=== PATIENT | female | born 1995 | race Caucasian/White ===

== ENCOUNTER 2018-04-17 13:30 | Outpatient (REF) | payer BC, SELFPAY ==
[2018-04-17 19:32] LABS: HCT 43.3 % (36.0-46.0); HGB 14.9 g/dL (12.0-15.5); Mean Corp. HGB Concentration 34.4 g/dL (32.0-36.0); Mean Corpuscular Hemoglobin 31.3 pg (27.0-33.0); Mean Platelet Volume 11.5 fL (8.0-11.0); Platelet Count 205 x1000/uL (130-400); RBC 4.76 m/cumm (4.00-5.20); RBC Distribution Width 12.4 % (11.7-14.6); White Blood Cell Count 5.47 k/cumm (4.4-10.8)
[2018-04-17 19:45] LABS: Anion Gap 9.6 mmol/L (3-11); BUN 12 mg/dL (7-18); CO2 27.4 mmol/L (21.0-32.0); CREATININE 0.76 mg/dL (0.55-1.02); Chloride 105 mmol/L (98-107); Glucose 89 mg/dL (70-100); Potassium 4.2 mmol/L (3.5-5.1); Sodium 142 mmol/L (136-145)
== END 2018-04-17 13:50 ==
LOC: NCHCN 13:30
PROVIDERS: PCP Physician Assistant Medical; Visit Provider Nurse Practitioner Family
DX: R10.9 Unspecified abdominal pain (principal)
CPT/HCPCS: 80048; 85027

== ENCOUNTER 2018-04-18 15:12 | Outpatient (REF) | payer BC, SELFPAY ==
[2018-04-20 11:56] LABS: Helicobacter pylori Ag, Feces Negative (NEGAT)
== END 2018-04-18 15:32 ==
LOC: NCHCN 15:12
PROVIDERS: PCP Physician Assistant Medical; Visit Provider Nurse Practitioner Family
DX: R10.9 Unspecified abdominal pain (principal)
CPT/HCPCS: 87338

== ENCOUNTER 2024-02-22 15:15 | Outpatient (REF) | payer BC, SELFPAY ==
--- OUTSIDE RECORDS SUMMARY | 2024-02-22 15:19 | XMS_ITS | Referral Summary ---
Author Organization [facility] Address [address] [place] [address] Care Team Providers Care Sterile Tech Name Role Phone Unknown, Provider Primary Care Provider [phone] Social History Tobacco Use Types Packs/Day Years Used Date Smoking Tobacco: Never Assessed Sex and Gender Information Value Date Recorded Sex Assigned at Not on file Gender Identity Not on file Sexual Orientation Not on file Plan of Treatment Not on file Care Teams Sterile Tech Relationship Specialty Start Date End Date Unknown, Provider, PCP - General 12/03/16
--- OUTSIDE RECORDS SUMMARY | 2024-02-22 15:19 | XMS_ITS | Encounter Summary ---
Author Organization [facility] Address [address] [place] [address] Care Team Providers Care Integrated Circuit Fabricator Name Role Phone Unknown, Provider Primary Care Provider [phone] Encounter Details Date Type Department Care Team (Late st Contact Info) Description 12/03/2016 Results Only [facility] [phone] Sera Grigsby MD [address] [place] [address] [phone] Social History Tobacco Use Types Packs/Day Years Used Date Smoking Tobacco: Never Assessed Sex and Gender Information Value Date Recorded Sex Assigned at Not on file Gender Identity Not on file Sexual Orientation Not on file documented as of this encounter Plan of Treatment Not on file documented as of this encounter Procedures Procedure Name Priority Date/Time Associated Diagnosis Comments PAP TEST- RESULT ONLY Routine 12/03/2016 0:00 EDT documented in this encounter Results * PAP TEST- RESULT ONLY (12/03/2016 0:00 EDT) Pathology Report: CYTOPATHOLOGY REPORT Reports generated via electronic interface contain original data; however they are lacking the format of the original report. Caution should be taken when reading/interpreti ng unformatted reports. Name: ? ELSY BAIRD ? Accession #: ? [id number] : ? 1995 (Age: 20) ??F ?Collect Date: ? 12/03/2016 Location: ? [facility] ? Receive Date: ? 12/07/2016 Provider: ?SERA GRIGSBY MD Copy to: ? Specimen/Source: ?Pap Test, Cervix, ThinPrep Imaging System with manual evaluation Last Menstrual Period: ? Hormonal/Contracep tive Status: ? None ? SPECIMEN ADEQUACY ? Satisfactory for Evaluation - transformation zone component present GENERAL CATEGORIZATION ? Epithelial Cell Abnormality INTERPRETATION ? Squamous Cell Abnormality - Low grade squamous intraepithelial lesion (LSIL). Fungal organisms present morphologically consistent with Cindy species. EDUCATIONAL NOTES/RECOMMENDATI ONS ? [facility] recommends following ASCCP's 2012 Updated Consensus Guidelines for the Management of Abnormal Cervical Cancer Screening Tests and Cancer Precursors (JLGTD, 2013; 17(5):S1-S27). ??Consensus guidelines are available online at www.asccp.org. ? Document reviewed and electronically signed by: ? KARI HANKS MD ? Report Date: ??12/16/2016 15:58 End of Report [facility] 12/03/2016 12/07/2016 Sera Grigsby MD PATHOLOGY KRISTY DIAZ [facility] [address] [place] [address] documented in this encounter Visit Diagnoses Not on filedocumented in this encounter Care Teams Integrated Circuit Fabricator Relationship Specialty Start Date End Date Unknown, Provider, PCP - General 12/03/16 documented as of this encounter
--- OUTSIDE RECORDS SUMMARY | 2024-02-22 15:19 | XMS_ITS | Continuity of Care Document ---
Author Organization [facility] Address [address] [place] [address] Care Team Providers Care Backside Grinder Name Role Phone Outside, Provider Primary Care Physician [facility] [id number] Date(s): 02/15/24 - 02/15/24 [facility] [address] [place] [address] Encounter Diagnosis Gastroenteritis(Discharge Diagnosis) - 02/15/24 Discharge Disposition: Home or Self Care Attending Physician: Elmer Holley MD Admitting Physician: Elmer Holley MD Allergies, Adverse Reactions, Alerts Substance Criticality Severity Reaction Reaction Severity Status tetanus/diphth/pertuss (Tdap) adult/adol High criticality Moderate Active Assessment and Plan Extracted from: Title:ED Provider Note Author:Elmer Holley MD Date:02/15/24 Assessment/Plan 1.??Gastroenteritis??K52.9 Ordered: ondansetron 4 mg oral tablet, disintegrating, 4 mg = 1 tab, Oral, TID, # 10 tab, 0 Refill(s), 02/26/24 5:10:00 EDT, Pharmacy: [facility], 113.4, kg, 02/15/24 3:53:00 EDT, Weight Dosing Discharge Patient, 02/15/24 5:10:00 EDT, Home Independently, Constant Indicator ?? Orders: THP ondansetron 4 mg Dis Tab, 4 tab, Oral, Misc, Once, First Dose: 02/15/24 5:10:00 EDT, Stop Date: 02/15/24 5:10:00 EDT, Physician Stop, STAT .Manual Differential (NCTY), Blood, Stat, Collected, 02/15/24 4:03:00 EDT, Once, Nurse collect, [id number] Follow Up With When Contact Information Outside, Provider Within 1 to 2 weeks ?? Additional Instructions: Medications ondansetron 4 mg oral tablet, disintegrating 4 mg = 1 tab, Oral, TID, # 10 tab, 0 Refill(s), 02/26/24 4:10:00 AM CDT, Pharmacy: [facility], 113.4, kg, 02/15/24 3:53:00 EDT, Weight Dosing Start Date: 02/15/24 Stop Date: 02/26/24 Status: Ordered Results Laboratory List Name Date .Manual Differential (NCTY) 02/15/24 CBC w/ Diff 02/15/24 Comprehensive Metabolic Panel (CMP) 02/14 Lipase Level 02/15/24 Magnesium Level 02/15/24 Most recent to oldest [Reference Range]: 1 WBC [5.0-10.0 x10^3/mcL] 15.0 x10^3/mcL *HI* (02/15/24 4:03 AM) RBC [4.1-5.3 x10^6/mcL] 5.6 x10^6/mcL *HI* (02/15/24 4:03 AM) Segs Man [40-75 %] 84 % *HI* (02/15/24 4:03 AM) Lymph Man [20-50 %] 9 % *LOW* (02/15/24 4:03 AM) Barber Man [2-15 %] 6 % (02/15/24 4:03 AM) Eos Man [1-6 %] 1 % (02/15/24 4:03 AM) BUN [7-18 mg/dL] 16 mg/dL (02/15/24 4:03 AM) Glucose Level [74-106 mg/dL] 130 mg/dL *HI* (02/15/24 4:03 AM) Potassium Level [3.5-5.1 mmol/L] 4.2 mmo l/L (02/15/24 4:03 AM) MCV [80.0-96.0 fL] 87.7 fL (02/15/24 4:03 AM) RBC Morph Normal (02/15/24 4:03 AM) AST [15-37 unit/L] 17 unit/L (02/15/24 4:03 AM) ALT [14-59 unit/L] 28 unit/L (02/15/24 4:03 AM) MCHC [31.0-35.0 g/dL] 34.0 g/dL (02/15/24 4:03 AM) Sodium Level [136-145 mmol/L] 140 mmol/L (02/15/24 4:03 AM) Hct [37.0-47.0 %] 49.4 % *HI* (02/15/24:03 AM) Lipase Level [16-77 unit/L] 26 unit/L 1 (02/15/24: AM) Calcium Level [8.5-10.1 mg/dL] 10.0 mg/d L (02/15/24 4:03 AM) Albumin Level [3.4-5.0 g/dL] 4.2 g/dL (02/15/24:03 AM) Protein Total [6.4-8.2 g/dL] 8.6 g/dL *HI* (02/15/24 4:03 AM) MCH [26.0-32.0 pg] 29.8 pg (02/15/24:03 AM) Magnesium Level [1.8-2.4 mg/dL] 1.5 mg/d L *LOW* (02/15/24 4:03 AM) Bilirubin Total [0.2-1.0 mg/dL] 0.5 mg/d L (02/15/24 4:03 AM) Hgb [12.0-16.0 g/dL] 16.8 g/dL *HI* (02/15/24 4:03 AM) Alk Phos [46-146 unit/L] 96 unit/L (02/15/24 4:03 AM) Band Man [0-5 %] 0 % (02/15/24 4:03 AM) Platelets [130-450 x10^3/mcL] 343 x10^3/ mcL (02/15/24 4:03 AM) CO2 [21-32 mmol/L] 28 mmol/L (02/15/24 4:03 AM) eGFR Non-AA [>=60] 71 (02/15/24 4:03 AM) eGFR AA [>=60] 71 (02/15/24 4:03 AM) Chloride Level [98-107 mmol/L] 101 mmol/ L (02/15/24 4:03 AM) RDW-CV [11.5-14.5 %] 12.2 % (02/15/24 4:03 AM) Slide Review Man Diff (02/15/24 4:03 AM) Abs Neut Man 12.6 x10^3/mcL *NA* (02/15/24 4:03 AM) Creatinine Level [0.55-1.02 mg/dL] 1.08 mg/dL *HI* (02/15/24 4:03 AM) Plt Estimation [Adequate] Adequate (02/15/24 4:03 AM) Baso Man [0-1 %] 0 % (02/15/24 4:03 AM) 1Interpretive Data: Effective 03/04/22, [facility] has switched to a revised Lipase test.Note new ReferenceRange. Vital Signs Most recent to oldest [Reference Range]: 1 Temperature Temporal Artery [36-38 Deg C ] 36.5 Deg C (02/15/24 3:50 AM) Heart Rate Monitored [60-100 bpm] 129 bp m *HI* (02/15/24 3:50 AM) Respiratory Rate [12-24 br/min] 26 br/mi n *HI* (02/15/24 3:50 AM) Blood Pressure [90-120/60-80 mmHg] 119/7 9mmHg (02/15/24 3:50 AM) Mean Arterial Pressure, Cuff [65-140 mmH g] 92 mmHg (02/15/24 3:50 AM) Weight 113.40 kg (02/15/24 3:50 AM) Weight Dosing 113.400 kg (02/15/24 3:50 AM) Social History Social History Type Response Tobacco Never tobacco user T obacco Use:. Sex Female Sex Representation Female (finding) Hospital Discharge Instructions Follow Up Care 02/15/2024 03:47:25 With:Outside, Provider Address: When:1 to 2 weeks Physician Emergency department Note * Elmer Holley MD: PERFORM Event Display: ED Note Physician Authored Date: [id number] ELSY BAIRD :1995 Age:28 years Sex:Female Visit Date:02/15/2024 Primary Care Physician: Outside, Provider Basic Information Time Seen: Elmer Holley MD / 02/15/2024 03:47 Chief Complaint Emesis x 4 hours. + Diarrhea. Epigastric pain. History Of Present Illness: 28-year-old female??reports emesis and epigastric pain for the past 4 hours since 1 AM woke up fromsleep with the bed last night was asymptomatic. Review of Systems: Epigastric abdominal pain, emesis Physical Exam Vitals & Measurements T:??36.5?C ??(Temporal Artery)?? HR:??129??(Monitored)?? RR:??26?? BP:??119/79?? SpO2:??98%?? WT:??113.40??kg?? Pain Score:??9?? Patient clinically??appears a bit uncomfortable, does have some minimal reproducible epigastric abdominal pain otherwise soft nonperitoneal abdomen, speaking in full sentences, no lower abdominal pain on exam Medical Decision Makin-year-old female presents with vomiting and epigastric abdominal pain. ??36.5, 119/79, 129, 26, 98%.?? Patient is not in any acute distress.?? She was given IV fluids and Zofran.?? Abdomen is soft nonperitoneal does have some reproducible epigastric abdominal pain.?? Reactive leukocytosis of 15 in the setting of vomiting.?? Hemoconcentrated??hemoglobin of 16.8 reflects mild dehydration with creatinine??1.08.?? Presentation most likely related to gastroenteritis. ??Possible foodborne illness. ??Was given GI??cocktail/viscous lidocaine, this??seemed to help her abdominal pain quite a bit. ??On repeat examination,??CT scan was considered however patient??given her overall improvement in symptoms??is not??likely presenting with acute surgical process.?? Lipase speaks against pancreatitis.??Doubt cholecystitis,??GI perforation. ??Most likely gastritis in the setting of gastroenteritis.?? Given return precautions ED with take-home pack of Zofran and prescription discharged in stable condition primary care follow-up Procedure No Qualifying Data Assessment/Plan 1.??Gastroenteritis??K52.9 Ordered: ondansetron 4 mg oral tablet, disintegrating, 4 mg = 1 tab, Oral, TID, # 10 tab, 0 Refill(s), 02/26/24 5:10:00 EDT, Pharmacy: [facility], 113.4, kg, 02/15/24 3:53:00 EDT, Weight Dosing Discharge Patient, 02/15/24 5:10:00 EDT, Home Independently, Constant Indicator ?? Orders: THP ondansetron 4 mg Dis Tab, 4 tab, Oral, Misc, Once, First Dose: 02/15/24 5:10:00 EDT, Stop Date:02/15/24 5:10:00 EDT, Physician Stop, STAT .Manual Differential (NCTY), Blood, Stat, Collected, 02/15/24 4:03:00 EDT, Once, Nurse collect, [id number] Follow Up With When Contact Information Outside, Provider Within 1 to 2 weeks ?? Additional Instructions: Medication Reconciliation New Prescription ondansetron (ondansetron 4 mg oral tablet, disintegrating)1 tab Oral (given by mouth) 3 times a day. Refills: 0. Problem List/Past Medical History Ongoing No qualifying data Historical No qualifying data Medication Administration Given aluminum hydroxide/magnesium hydroxide/simethicone 200 mg-200 mg-20 mg/5 mL oral suspension, 30 mL,Oral lidocaine 2% mucous membrane solution, 15 mL, Mucous Membrane NS bolus, 1000 mL, Hydration Bolus Zofran, 4 mg, IV Push Allergies tetanus/diphth/pertuss (Tdap) adult/adol Social History Alcohol Never Electronic Cigarette/Vaping Electronic Cigarette Use: Use, within last 90 days. Type: Nicotine infused. Substance Use Current, Marijuana Tobacco Never tobacco user Tobacco Use:. Lab Results CBC and Differential?? LATEST RESULTS?? WBC?? 02/15/24 04:03?? 15.0 ??High?? RBC?? 02/15/24 04:03?? 5.6 ??High?? Hgb?? 02/15/24 04:03?? 16.8 ??High?? Hct?? 02/15/24 04:03?? 49.4 ??High?? MCV?? 02/15/24 04:03?? 87.7?? MCH?? 02/15/24 04:03?? 29.8?? MCHC?? 02/15/24 04:03?? 34.0?? RDW-CV?? 02/15/24 04:03?? 12.2?? Platelets?? 02/15/24 04:03?? 343?? Slide Review?? 02/15/24 04:03?? Man Diff? Routine Chemistry?? LATEST RESULTS?? Sodium Level?? 02/15/24 04:03?? 140?? Potassium Level?? 02/15/24 04:03?? 4.2?? Chloride Level?? 02/15/24 04:03?? 101?? CO2?? 02/15/24 04:03?? 28?? Alk Phos?? 02/15/24 04:03?? 96?? AST?? 02/15/24 04:03?? 17?? ALT?? 02/15/24 04:03?? 28?? BUN?? 02/15/24 04:03?? 16?? Glucose Level?? 02/15/24 04:03?? 130 ??High?? Creatinine Level?? 02/15/24 04:03?? 1.08 ??High?? eGFR AA?? 02/15/24 04:03?? 71?? eGFR Non-AA?? 02/15/24 04:03?? 71?? Calcium Level?? 02/15/24 04:03?? 10.0?? Protein Total?? 02/15/24 04:03?? 8.6 ??High?? Albumin Level?? 02/15/24 04:03?? 4.2?? Bilirubin Total?? 02/15/24 04:03?? 0.5?? Lipase Level?? 02/15/24 04:03?? 26?? Magnesium Level?? 02/15/24 04:03?? 1.5 ??Low? Electronically Signed on 02/15/2024 05:12 EDT Elmer Holley MD Emergency department Discharge instructions * Elmer Holley MD: PERFORM Event Display: ED Discharge Information Authored Date: [id number] ELSY BAIRD :1995 Age:28 years Sex:Female Visit Date:02/15/2024 Primary Care Physician: Outside, Provider Discharge Instructions We would like to thank you for allowing us to assist you with your healthcare needs. The following includes patient education materials and information regarding your injury/illness. Diagnosis from Today's Visit Gastroenteritis Discharge Vitals Temperature??(Temporal Artery) 97.7 ??F (36.5 ??C) Heart Rate??(Monitored) 129 Respiratory Rate?? 26 Blood Pressure?? 119/79?? SpO2?? 98% Weight?? 250.05 lb (113.40 kg) Allergies tetanus/diphth/pertuss (Tdap) adult/adol What to Do Next Instructions from Your Care Team You were seen in the emergency department??today.?? Your symptoms are most likely related to gastroenteritis, which is usually a self-limiting??infection of the gastrointestinal tract that your body clears??within 24 to 72 hours. ??You can take the Zofran as prescribed as needed for??nausea and vomiting. ??Try to keep??on top of fluids throughout the day. ??Come back to the ER with any worsening symptoms otherwise check back in with your doctor if you have any other concerns. You Need to Schedule the Following Appointments Follow Up with??Outside, Provider When:??Within 1 to 2 weeks Where: ?? You were treated today on an emergency basis; it may be sorenson to contact your primary care provider to notify them of your visit today. You may have been referred to your regular doctor or a specialist, please follow up as instructed. If your condition worsens or you can't get in to see the doctor, contact the Emergency Department. Medications What How Much When Why Instructions Next Dose New ondansetron (ondansetron 4 mg oral tablet, disintegrating) 1 tab Oral (given by mouth) 3 times a day Gastroenteritis Pickup at [facility] Pharmacy Information [facility]: [address] [place], [place] [phone] Tests Performed Medications and Immunizations Administered Given aluminum hydroxide/magnesium hydroxide/simethicone 200 mg-200 mg-20 mg/5 mL oral suspension, 30 mL,Oral lidocaine 2% mucous membrane solution, 15 mL, Mucous Membrane NS bolus, 1000 mL, Hydration Bolus Zofran, 4 mg, IV Push Lab Test Name Test Result Date/Time WBC 15.0 x10^3/mcL 02/15/2024 04:03 EDT RBC 5.6 x10^6/mcL 02/15/2024 04:03 EDT Hgb 16.8 g/dL 02/15/2024 04:03 EDT Hct 49.4 % 02/15/2024 04:03 EDT MCV 87.7 fL 02/15/2024 04:03 EDT MCH 29.8 pg 02/15/2024 04:03 EDT MCHC 34.0 g/dL 02/15/2024 04:03 EDT RDW-CV 12.2 % 02/15/2024 04:03 EDT Platelets 343 x10^3/mcL 02/15/2024 04:03 EDT Slide Review Man Diff 02/15/2024 04:03 EDT Sodium Level 140 mmol/L 02/15/2024 04:03 EDT Potassium Level 4.2 mmol/L 02/15/2024 04:03 EDT Chloride Level 101 mmol/L 02/15/2024 04:03 EDT CO2 28 mmol/L 02/15/2024 04:03 EDT Alk Phos 96 unit/L 02/15/2024 04:03 EDT AST 17 unit/L 02/15/2024 04:03 EDT ALT 28 unit/L 02/15/2024 04:03 EDT BUN 16 mg/dL 02/15/2024 04:03 EDT Glucose Level 130 mg/dL 02/15/2024 04:03 EDT Creatinine Level 1.08 mg/dL 02/15/2024 04:03 EDT eGFR AA 71 02/15/2024 04:03 EDT eGFR Non-AA 71 02/15/2024 04:03 EDT Calcium Level 10.0 mg/dL 02/15/2024 04:03 EDT Protein Total 8.6 g/dL 02/15/2024 04:03 EDT Albumin Level 4.2 g/dL 02/15/2024 04:03 EDT Bilirubin Total 0.5 mg/dL 02/15/2024 04:03 EDT Lipase Level 26 unit/L 02/15/2024 04:03 EDT Magnesium Level 1.5 mg/dL 02/15/2024 04:03 EDT Patient/Fabric Pattern Grader Signature Patient Name:ELSY BAIRD I have received this information and my questions have been answered. Patient/Fabric Pattern Grader Name: Patient/Fabric Pattern Grader Signature: Relationship to Patient: Witness Name/Signature: Date: Electronically Signed on: 02/15/2024 05:12 EDTSigned by:ANAND Patient Care team information Care Team Personnel Name: Outside, Provider Position: No Access Member Role: Primary Care Physician Care Team Related Persons Name: TAYLOR TOMPKINS Insurance Providers Guarantor name: ELSY BAIRD [facility] Information #: 1 Payer[place] Member Number: [id number] Policy Number: NA Health Plan Information #: 2 Payer: [employer] [employer] Member Number: [id number] Policy Number: NA
--- OUTSIDE RECORDS SUMMARY | 2024-02-22 15:19 | XMS_ITS | Clinical Summary ---
Author Organization [facility] Address [address] [place] [address] Care Team Providers Care Electrical Transmission Engineer Name Role Phone Unknown, Provider Primary Care Provider [phone] Social History Tobacco Use Types Packs/Day Years Used Date Smoking Tobacco: Never Assessed Sex and Gender Information Value Date Recorded Sex Assigned at Not on file Gender Identity Not on file Sexual Orientation Not on file Plan of Treatment Health Maintenance Due Date Last Done Comments Hepatitis C Screen 1995 Hepatitis B Vaccine (1 of 3 - 19+ 3-dose series) 12/23 COVID-19 Vaccine ( season) 2023 Care Teams Electrical Transmission Engineer Relationship Specialty Start Date End Date Unknown, Provider, PCP - General 12/03/16
--- OUTSIDE RECORDS SUMMARY | 2024-02-22 15:19 | XMS_ITS | Encounter Summary ---
Author Organization [facility] Address [address] [place] [address] Care Team Providers Care Fire And Safety Helper Name Role Phone Unknown, Provider Primary Care Provider [phone] Encounter Details Date Type Department Care Team (Latest Contact Info) Description 12/03/2016 9:10 EDT - 12/03/2016 23:59 EDT Hospital Encounter [address] [address] Unknown, Provider, Discharge Disposition: Home or Self Care Social History Tobacco Use Types Packs/Day Years Used Date Smoking Tobacco: Never Assessed Sex and Gender Information Value Date Recorded Sex Assigned at Not on file Gender Identity Not on file Sexual Orientation Not on file documented as of this encounter Discharge Disposition Disposition Code Departure Means Destination Home or Self Intermediate documented in this encounter Plan of Treatment Not on file documented as of this encounter Visit Diagnoses Not on filedocumented in this encounter Care Teams Fire And Safety Helper Relationship Specialty Start Date End Date Unknown, Provider, PCP - General 12/03/16 documented as of this encounter
[2024-02-22 19:54] LABS: Abs Immature Grans 0.07 10^3/uL (0.0-0.06); Absolute Basophil Count 0.06 10^3/uL (0.0-0.2); Absolute Eosinophil Count 0.26 10^3/uL (0.0-0.7); Absolute Lymphocyte Count 2.42 10^3/uL (1.2-3.4); Absolute Monocyte Count 0.53 10^3/uL (0.1-0.8); Absolute Neutrophil Count 5.94 10^3/uL (1.2-6.7); Basophils % 0.6 %; Eosinophils % 2.8 %; HCT 45.2 % (36.0-46.0); Immature Grans % 0.8 %; Lymphocytes % 26.1 %; MCH 29.9 pg (27.0-33.0); MCHC 33.2 % (32.0-36.0); MCV 90 fL (80-95); MPV 10.6 fL (8.0-11.0); Monocytes % 5.7 %; Platelet Count 310 10^3/uL (130-400); RBC 5.02 10^6/uL (3.93-5.22); RDW 11.9 % (11.7-14.6); RDW-SD 39.1 fL; WBC 9.28 10^3/uL (4.4-10.8)
[2024-02-22 20:03] LABS: Hemoglobin A1C 5.2 % (<5.7)
[2024-02-22 20:54] LABS: Calculated LDL 82 mg/dL (<100); Cholesterol 152 mg/dL (<200); HDL Cholesterol 62 mg/dL (40-60); TSH (W/Ref FT4) 1.51 uIU/mL (0.36-3.74); Triglyceride 43 mg/dL (<150); Vitamin D 25 Total 19.1 ng/mL (30-100)
== END 2024-02-22 15:16 | disposition home or self-care (01) ==
LOC: NCHCN 15:15
PROVIDERS: PCP Physician Assistant Medical; Visit Provider Physician Assistant
DX: Z13.1 Encounter for screening for diabetes mellitus; Z13.220 Encounter for screening for lipoid disorders; D72.829 Elevated white blood cell count, unspecified; E66.9 Obesity, unspecified
CPT/HCPCS: 80061; 82306; 83036; 84443; 85025

== ENCOUNTER 2024-03-28 13:55 | Outpatient (REF) | payer BC, SELFPAY ==
--- NOTE | 2024-03-28 11:40 | PAPFT_PTH ---
PATIENT: Noé Edmonds LOC: [facility] U#:[id number] AGE/SX: 28/F ROOM: RE03/28/[address]: Irma Robins : 1995 BED: DIS: 03/28/2024 SPEC #: [id number] RECD: 03/29/24 12:25 STATUS: ALEJANDRA REEn #: [id number] JUAN: 03/28/24 11:[address]: Irma Robins [facility] Cytology RECD BY: Areli Jim ENTERED: 03/29/24 12:25 SP TYPE: PAPFT OTHR DR: Consuelo Jennings Tissues: 1 - CX/ENDOCX FOR PAP SMEARS Procedures: PAP THIN PREP/[facility] Screening HPV DNA PROBE Comments: [id number] (HPV 16 & 18/45)
--- OUTSIDE RECORDS SUMMARY | 2024-03-28 14:06 | XMS_ITS | Encounter Summary ---
Author Organization [facility] Address [address] [place] [address] Care Team Providers Care Cvor Nurse Name Role Phone Unknown, Provider Primary Care Provider Unava ilable Encounter Details Date Type Department Care Team (Late st Contact Info) Description 12/03/2016 Results Only [facility] [phone] Sera Grigsby MD [address] [place] [phone] Social History Tobacco Use Types Packs/Day Years Used Date Smoking Tobacco: Never Assessed Comments Unknown Sex and Gender Information Value Date Recorded Sex Assigned at Not on file Legal Sex Female 17:22 EDT Gender Identity Not on file Sexual Orientation [...] ? ELSY BAIRD ? Accession #: ? [id number] : ? 1995 (Age: 20) ??F ?Collect [...] EDUCATIONAL NOTES/RECOMMENDATI ONS ? [facility] recommends following ASCCP's 2012 Updated Consensus Guidelines for the Management of Abnormal Cervical Cancer Screening Tests and Cancer Precursors (JLGTD, 2013; 17(5):S1-S27). ??Consensus guidelines are available online at www.asccp.org. ? Document reviewed and electronically signed by: ? KARI HANKS MD ? Report Date: ??12/16/2016 15:58 End of Report [facility] 12/03/2016 12/07/2016 us Sera Grigsby MD PATHOLOGY ORDERABLES F inal Result [facility] [address] [place] [address] documented in this encounter Visit Diagnoses Not on filedocumented in this encounter Care Teams Cvor Nurse Relationship Specialty Start Date End Date Unknown, Provider, PCP - General 12/03/16 documented as of this encounter
--- OUTSIDE RECORDS SUMMARY | 2024-03-28 14:06 | XMS_ITS | Encounter Summary ---
Author Organization [facility] Address [address] [place] [address] Care Team Providers Care Speech And Language Clinician Name Role Phone Unknown, Provider Primary Care Provider Unava ilable Encounter Details Date Type Department Care Team (Latest Contact Info) Description 12/03/2016 9:10 EDT - 12/03/2016 23:59 EDT Hospital Encounter [address] [address] Unknown, Provider, Discharge Disposition: Home or Self [...] Code Departure Means Destination Home or Self [facility] documented in this encounter Plan of Treatment Not on file documented as of this encounter Visit Diagnoses Not on filedocumented in this encounter Care Teams Speech And Language Clinician Relationship Specialty Start Date End Date Unknown, Provider, PCP - General 12/03/16 documented as of this encounter
--- OUTSIDE RECORDS SUMMARY | 2024-03-28 14:06 | XMS_ITS | Referral Summary ---
Author Organization [facility] Address [address] [place] [address] Care Team Providers Care Associate Civil Engineer Name Role Phone Unknown, Provider Primary Care Provider Unava ilable Social History Tobacco Use Types Packs/Day Years Used Date Smoking Tobacco: Never Assessed Comments Unknown Sex and Gender Information Value Date Recorded Sex Assigned at Not on file Legal Sex Female 17:22 EDT Gender Identity Not on file Sexual Orientation Not on file Plan of Treatment Not on file Care Teams Associate Civil Engineer Relationship Specialty Start Date End Date Unknown, Provider, PCP - General 12/03/16
--- OUTSIDE RECORDS SUMMARY | 2024-03-28 14:06 | XMS_ITS | Clinical Summary ---
Author Organization [facility] Address [address] [place] [address] Care Team Providers Care Stitcher Feeder Name Role Phone Unknown, Provider MD Primary Care Provider Unava ilable Social History [...] 3-dose series) 12/23 COVID-19 Vaccine ( season) 2024 Care Teams Stitcher Feeder Relationship Specialty Start Date End Date Unknown, Provider, PCP - General 12/03/16
== END 2024-03-28 13:56 | disposition home or self-care (01) ==
LOC: NCHCN 13:55
PROVIDERS: PCP Physician Assistant Medical; Visit Provider Physician Assistant
DX: Z87.42 Personal history of other diseases of the female genital tract (principal); Z12.4 Encounter for screening for malignant neoplasm of cervix; Z72.51 High risk heterosexual behavior
CPT/HCPCS: 88142; 87624